=== PATIENT | female | born 1945 | race Caucasian/White ===

== ENCOUNTER 2023-08-19 10:46 | Inpatient (IN) | payer MEDICARE, BC ==
[~2023-08-19] VITALS: Ht 152.4 cm; Wt 67.0 kg
[2023-08-19 15:00] VITALS: BP 111/56; TEMP 98.1; O2SAT 95
[2023-08-19] MEDS ORDERED: MIRALAX *UNIT DOSE* 17GM PACKET PO PRN (15:40)
[2023-08-19] MEDS ORDERED: CLOP75TA2 PO (15:45)
[2023-08-19] MEDS ORDERED: RAMI5CAP60 PO (15:45)
[2023-08-19] MEDS ORDERED: ATEN50TA2 PO (15:45)
[2023-08-19] MEDS ORDERED: NITROGLYCERIN 0.4MG SUBL TABLET SL PRN (15:50)
[2023-08-19] MEDS ORDERED: HYDR-3363 PO (17:06)
[2023-08-19] MEDS ORDERED: OMEGCAP4 PO (17:06)
[2023-08-19] MEDS ORDERED: ECOT81TA5 PO (17:06)
[2023-08-19] MEDS ORDERED: LANS-67 PO (17:06)
[2023-08-19] MEDS ORDERED: VITA100016 PO (17:08)
[2023-08-19] MEDS ORDERED: NITR4TASL SL (17:08)
[2023-08-19] MEDS ORDERED: ASPI81CH33 PO (17:08)
[2023-08-19] MEDS ORDERED: EZET10TA21 PO (17:15)
[2023-08-19] MEDS ORDERED: med rec comment (17:15)
[2023-08-19] MEDS ORDERED: THERTAB52 PO (17:15)
[2023-08-19 20:00] VITALS: BP 125/62; TEMP 98.5; O2SAT 95
[2023-08-19] MEDS: HEPARIN SOD (PORCINE) 5000UNITS/ML 1ML VIAL/SYRINGE SQ SCH (21:13)
[2023-08-19] MEDS: AUGMENTIN 875 MG TAB PO SCH (21:14)
[2023-08-19] MEDS: ramipriL 5 MG CAP PO SCH (21:14)
[2023-08-19] MEDS: ONDANSETRON 4MG TAB PO ONE (22:36)
[2023-08-19 22:39] VITALS: TEMP 99.7
[2023-08-20 04:00] VITALS: BP 105/49; TEMP 98.4; O2SAT 99
[2023-08-20 07:43] LABS: BASO % 0.4 % (0.0-1.0); EOS % 0.2 % (0.0-3.0); HEMOGLOBIN 13.7 g/dl (12.0-15.5); LYMPH # 0.6 10^3/uL (1.5-5.0); LYMPH % 12.6 % (24.0-44.0); MEAN CORPUSCULAR HEMOGLOBIN 28.1 pg (27.0-33.0); MEAN CORPUSCULAR HGB CONC 32.6 g/dl (32.0-36.5); MEAN CORPUSCULAR VOLUME 86.1 fl (80.0-96.0); MONO # 0.4 10^3/uL (0.0-0.8); MONO % 7.2 % (2.0-8.0); NEUTROPHILS % 79.2 % (36.0-66.0); PLATELET COUNT, AUTOMATED 162 10^3/uL (150-450); RED BLOOD COUNT 4.88 10^6/uL (4.00-5.40)
[2023-08-20 07:50] VITALS: BP 109/57; TEMP 98.1; O2SAT 98
[2023-08-20 07:59] LABS: ALBUMIN 3.3 G/DL (3.2-5.2); BILIRUBIN,TOTAL 0.4 MG/DL (0.3-1.2); CALCIUM LEVEL 8.6 MG/DL (8.3-10.6); CREATININE FOR GFR 1.01 MG/DL (0.55-1.30); GLOMERULAR FILTRATION RATE 56.7 (>39); POTASSIUM SERUM 4.1 MMOL/L (3.5-5.1); TOTAL PROTEIN 6.4 G/DL (5.7-8.2)
[2023-08-20 08:02] LABS: THYROID STIMULATING HORMONE 3.471 uIU/ML (0.55-4.78)
[2023-08-20] MEDS: OMEGA-3 1000MG CAPSULE PO SCH (09:04)
[2023-08-20] MEDS: PANTOPRAZOLE 40MG TAB (PROTONIX) PO SCH (09:04)
[2023-08-20] MEDS: EZETIMIBE 10MG TABLET (ZETIA) PO SCH (09:04)
[2023-08-20] MEDS: MULTIVITAMINS/MINERALS THERAP 1 TAB PO SCH (09:05)
[2023-08-20] MEDS: VITAMIN D 1,000 INTERNATIONAL UNITS TABLET PO SCH (09:05)
[2023-08-20] MEDS: CLOPIDOGREL 75 MG TAB PO SCH (09:05)
[2023-08-20] MEDS: ASPIRIN 81MG ENTERIC TABLET PO SCH (09:07)
[2023-08-20] MEDS: atenoloL 50 MG TAB PO SCH (09:07)
[2023-08-20] MEDS: ACETAMINOPHEN 500 MG TAB PO PRN (09:09)
[2023-08-20] MEDS: LIDOCAINE 5% (LIDODERM) PATCH TD SCH (09:23)
[2023-08-20 11:46] VITALS: BP 124/61; TEMP 97.7; O2SAT 100
[2023-08-20 15:50] VITALS: BP 124/61; TEMP 97.7; O2SAT 100
[2023-08-20] MEDS ORDERED: BISACODYL 10MG SUPP PR PRN (17:30)
[2023-08-20 20:00] VITALS: BP 103/57; TEMP 97.9; O2SAT 94
[2023-08-20] MEDS: RAMELTEON 8 MG TAB (ROZEREM) PO PRN (20:46)
[2023-08-21 04:00] VITALS: BP 101/54; TEMP 97.3; O2SAT 94
[2023-08-21 12:42] VITALS: BP 114/74; TEMP 98.1; O2SAT 97
[2023-08-21 20:00] VITALS: BP 122/67; TEMP 97.8; O2SAT 97
[2023-08-22 04:00] VITALS: BP 112/58; TEMP 98; O2SAT 97
[2023-08-22 06:39] LABS: HEMATOCRIT 43.5 % (36.0-47.0); HEMOGLOBIN 14.1 g/dl (12.0-15.5); MEAN CORPUSCULAR HEMOGLOBIN 28.5 pg (27.0-33.0); MEAN CORPUSCULAR HGB CONC 32.4 g/dl (32.0-36.5); MEAN CORPUSCULAR VOLUME 87.9 fl (80.0-96.0); PLATELET COUNT, AUTOMATED 188 10^3/uL (150-450); RED BLOOD COUNT 4.95 10^6/uL (4.00-5.40); WHITE BLOOD COUNT 4.3 10^3/uL (4.0-10.0)
[2023-08-22 14:00] VITALS: BP 136/77; TEMP 98.3; O2SAT 96
[2023-08-22 20:00] VITALS: BP 121/61; TEMP 98.1; O2SAT 96
[2023-08-23 04:00] VITALS: BP 136/67; TEMP 98; O2SAT 96
[2023-08-23 14:00] VITALS: BP 123/68; TEMP 97.1; O2SAT 97
[2023-08-23 20:00] VITALS: BP 108/55; TEMP 97.7; O2SAT 98
[2023-08-24 04:00] VITALS: BP 132/74; TEMP 96.4; O2SAT 97
[2023-08-24 12:00] VITALS: BP 122/72; TEMP 97.8; O2SAT 96
[2023-08-24] MEDS: LIDOCAINE 5% (LIDODERM) PATCH TD SCH (14:54)
[2023-08-24 19:35] VITALS: BP 133/87; TEMP 97.8; O2SAT 97
[2023-08-25 04:28] VITALS: BP 128/73; TEMP 97.4; O2SAT 95
[2023-08-25 07:47] LABS: HEMATOCRIT 42.7 % (36.0-47.0); HEMOGLOBIN 14.3 g/dl (12.0-15.5); MEAN CORPUSCULAR HEMOGLOBIN 28.4 pg (27.0-33.0); MEAN CORPUSCULAR HGB CONC 33.5 g/dl (32.0-36.5); MEAN CORPUSCULAR VOLUME 84.9 fl (80.0-96.0); PLATELET COUNT, AUTOMATED 249 10^3/uL (150-450); RED BLOOD COUNT 5.03 10^6/uL (4.00-5.40); WHITE BLOOD COUNT 5.5 10^3/uL (4.0-10.0)
[2023-08-25 08:11] LABS: BLOOD UREA NITROGEN 25 MG/DL (9-23); CALCIUM LEVEL 9.5 MG/DL (8.3-10.6); CARBON DIOXIDE LEVEL 25 MMOL/L (20-31); CHLORIDE LEVEL 105 MMOL/L (98-107); CREATININE FOR GFR 0.94 MG/DL (0.55-1.30); GLOMERULAR FILTRATION RATE > 60.0 (>39); GLUCOSE, FASTING 113 MG/DL (74-106); POTASSIUM SERUM 4.9 MMOL/L (3.5-5.1); SODIUM LEVEL 136 MMOL/L (136-145)
[2023-08-25 12:00] VITALS: BP 122/76; TEMP 98; O2SAT 96
[2023-08-25] MEDS: DICLOFENAC EPOLAMINE 1.3% PATCH TOP SCH (18:13)
[2023-08-25 20:10] VITALS: BP 125/66; TEMP 97.9; O2SAT 99
[2023-08-26 04:00] VITALS: BP 120/68; TEMP 97.7; O2SAT 95
[2023-08-26] MEDS: CYCLOBENZAPRINE 5MG TABLET PO PRN (10:20)
[2023-08-26 12:00] VITALS: BP 137/71; TEMP 97.4; O2SAT 98
[2023-08-26 19:43] VITALS: BP 114/68; TEMP 96.9; O2SAT 94
[2023-08-27 04:00] VITALS: BP 120/68; TEMP 97.7; O2SAT 96
[2023-08-27 12:00] VITALS: BP 136/73; TEMP 97.9; O2SAT 96
[2023-08-27] MEDS ORDERED: PILL CUTTER 1 EACH XX PRN (16:00)
[2023-08-27] MEDS: CYCLOBENZAPRINE 5MG TABLET PO PRN (16:27)
[2023-08-27 20:07] VITALS: BP 129/60; TEMP 97.7; O2SAT 96
[2023-08-28 04:18] VITALS: BP 112/59; TEMP 97.5; O2SAT 97
[2023-08-28 06:20] LABS: HEMATOCRIT 40.1 % (36.0-47.0); MEAN CORPUSCULAR HEMOGLOBIN 27.9 pg (27.0-33.0); MEAN CORPUSCULAR HGB CONC 32.4 g/dl (32.0-36.5); MEAN CORPUSCULAR VOLUME 86.1 fl (80.0-96.0); PLATELET COUNT, AUTOMATED 286 10^3/uL (150-450); RED BLOOD COUNT 4.66 10^6/uL (4.00-5.40); WHITE BLOOD COUNT 5.5 10^3/uL (4.0-10.0)
[2023-08-28 08:14] VITALS: BP 112/59
[2023-08-28] MEDS ORDERED: CYMB1CAP4 PO (12:01)
== END 2023-08-28 15:05 | disposition home health service (06) | DRG 65 ==
LOC: M PM&R 14:41
PROVIDERS: ADMIT Student in an Organized Health Care Education/Training Program; ATTEND Student in an Organized Health Care Education/Training Program
DX: I63.9 Cerebral infarction, unspecified (principal); L03.113 Cellulitis of right upper limb; I10 Essential (primary) hypertension; I25.10 Atherosclerotic heart disease of native coronary artery without angina pectoris; E11.9 Type 2 diabetes mellitus without complications; Z74.1 Need for assistance with personal care; H91.13 Presbycusis, bilateral; K44.9 Diaphragmatic hernia without obstruction or gangrene; Z74.09 Other reduced mobility; R13.10 Dysphagia, unspecified; R53.1 Weakness; F41.9 Anxiety disorder, unspecified; K21.9 Gastro-esophageal reflux disease without esophagitis; M54.9 Dorsalgia, unspecified; G89.29 Other chronic pain; Z95.5 Presence of coronary angioplasty implant and graft; Z79.82 Long term (current) use of aspirin; Z79.899 Other long term (current) drug therapy; Z88.6 Allergy status to analgesic agent; Z88.8 Allergy status to other drugs, medicaments and biological substances; I80.9 Phlebitis and thrombophlebitis of unspecified site